=== PATIENT | female | born 1940 | race African-American/Black ===

== ENCOUNTER 2016-10-06 00:24 | Inpatient (IN) ==
--- NOTE | 2016-10-06 02:22 | PROVIDER DOCUMENTATION ---
This chart was entered by Terell Larios Scribe, acting as scribe for Aaron Mantilla PA. HPI-Abdominal Pain/GI Problem - General Source: patient, EMS - History of Present Illness-ABD Nature of Presenting Problems: Pt is a 76 yoaaf wgo presents to ER via EMS from [facility] where she has been a resident for x5 years for evaluation of dark colored contents coming from pt's feeding tube. Nursing staff reports that they have never seen this before and became worried. Abdominal Pain Onset Location: reports: LUQ, LLQ Pain Radiation: reports: no radiation Quality of Pain: reports: aching Severity in ED: reports: mild Onset/Duration: reports: unsure, 24 hours ago Timing: reports: still present Associated Symptoms: denies: anxiety, arm pain, back/neck pain, chest pain, cough, diaphoresis, diarrhea, fever/chills, heartburn, joint pain, muscle aches , nausea, shortness of breath, vomiting, weakness Last BM: unsure Dark Stools Present?: reports: none noticed Rectal Bleeding: reports: none Rectal Pain: reports: none Emesis Description: reports: none <Aaron Mantilla - Last Filed: 10/06/16 05:05> <Carlos Ojeda - Last Filed: 10/06/16 06:09> - General Chief Complaint: General Adult Stated Complaint: possible gi bleed Time Seen by Provider: 10/06/16 01:29 Allergies/Adverse Reactions: Patient Allergies Allergy/AdvReac Type Severity Reaction Status Date / Time No Known Allergies Allergy Verified 10/06/16 01:25 Home Medications: Home Medication List Medication Instructions Recorded Confirmed Last Taken Type ATORVAstatin [Lipitor] 20 mg PEG QAM 10/06/16 10/06/16 10/05/16 09:00 History Aspirin 81 mg PEG QAM 10/06/16 10/06/16 10/05/16 09:00 History Bisacodyl [Dulcolax] 10 mg OK QHS 10/06/16 10/06/16 10/05/16 21:00 History Hydrocodone/Acetaminophen [Kincaid 1 each PEG BID 10/06/16 10/06/16 10/05/16 21: 00 History 5-325 Tablet] Insulin Glargine [Lantus] 20 unit SUBQ QHS 10/06/16 10/06/16 10/05/16 21:00 History Levetiracetam [Keppra] 500 mg PEG BID 10/06/16 10/06/16 10/05/16 17:00 History Metoclopramide [Reglan Liquid] 10 mg PEG Q8H 10/06/16 10/06/16 10/05/16 20:00 History Multivit,Th Iron,Other Min 1 each PO QAM 10/06/16 10/06/16 10/05/16 09:00 History [Thera-M] Nut.tx.gluc.intoler,Lac-Fr,Soy 880 ml PEG BID 10/06/16 10/06/16 10/05/16 19:00 History [Glucerna 1.5 Chidi] Phenytoin 100 mg PEG QHS 10/06/16 10/06/16 10/05/16 21:00 History Phenytoin 150 mg PEG QAM 10/06/16 10/06/16 10/05/16 09:00 History Polyethylene Glycol 3350 [Miralax] 17 gm PEG QAM 10/06/16 10/06/16 10/05/16 09: 00 History Protein Hydrolysate,Milk [Liquid 30 ml PEG QAM 10/06/16 10/06/16 10/05/16 09:00 History Protein Fortifier] Review of Systems - Adult - REVIEW OF SYSTEMS - ADULT Constitutional: denies: chills, fever, fatique, night sweats, weight gain, weight loss Eyes: reports: no symptoms reported Ears, Nose, Mouth & Throat: reports: no symptoms reported Cardiovascular: reports: no symptoms reported Respiratory: reports: no symptoms reported Gastrointestinal: reports: other (feeding tube leaking, daark colored contents) . denies: abdominal pain, hematemesis, constipation, diarrhea, difficulty swallowing, frequent heartburn, nausea, poor appetite, rectal bleeding, vomiting Genitourinary: reports: no symptoms reported Musculoskeletal: reports: no symptoms reported Integumentary: reports: no symptoms reported Neurological: reports: no symptoms reported Psychiatric: reports: no symptoms reported Endocrine: reports: no symptoms reported Hematologic/Lymphatic: reports: no symptoms reported Allergic/Immunologic: reports: no symptoms reported All Other Systems: Reviewed and Negative <Aaron Mantilla - Last Filed: 10/06/16 05:05> - REVIEW OF SYSTEMS - ADULT Constitutional: reports: no symptoms reported <Carlos Ojeda - Last Filed: 10/06/16 06:09> Past History - Adult - PAST MEDICAL HISTORY-ADULT Review of Records: reports: Nursing Assessment Review, Medications Reviewed - IMMUNIZATION STATUS Childhood Immunizations: See Nurse Assessment Flu Vaccine: See Nurse Assessment <Aaron Mantilla - Last Filed: 10/06/16 05:05> - PAST MEDICAL HISTORY-ADULT Review of Records: reports: Medications Reviewed <Carlos Ojeda - Last Filed: 10/06/16 06:09> Physical Exam-General - PHYSICAL EXAM-ADULT Initial Vital Signs Reviewed: Yes - CONSTITUTIONAL General Appearance: appears well, alert, no apparent distress, other (Pt non verbal, but otherwise pleasant and in no acute distress) - RESPIRATORY Respiratory: chest non-tender, lungs clear, normal breath sounds, no pleuratic chest pain, no respiratory distress, no accessory muscle use. negative: respiratory distress, decreased breath sounds, accessory muscle use, wheezing - CARDIOVASCULAR Cardiovascular: normal peripheral pulses, regular rate, rhythm. negative: bradycardia, tachycardia, irregularly irregular - GASTROINTESTINAL (ABDOMEN) Abdominal Exam: normal bowel sounds, non tender, soft, no organomegaly, no pulsatile mass, other (G-tube in good position, no signs of infection or drainage) - PSYCHIATRIC Psych/Mental Status: normal mood/affect, normal thought content, normal thought process <Aaron Mantilla - Last Filed: 10/06/16 05:05> - PHYSICAL EXAM-ADULT Initial Vital Signs Reviewed: Yes - CONSTITUTIONAL General Appearance: no apparent distress <Carlos Ojeda - Last Filed: 10/06/16 06:09> Progress - PLAN OF CARE/RESULTS Progress/Plan/Lab Results: Vital Signs - 8 hr 10/06/16 00:50 Temperature 97.8 F Pulse Rate 82 Respiratory Rate 14 Blood Pressure 153/98 O2 Sat by Pulse Oximetry 95 Orders Category Date Time Status Saline Loc DIRECTED Care 10/06/16 01:38 Active NPO Diet 10/06/16 01:38 Active AMYLASE [CHEM] Stat Lab 10/06/16 01:38 Uncollected CBC WITH ELECTRONIC DIFF [HEME] Stat Lab 10/06/16 01:38 Uncollected COMPREHENSIVE METABOLIC PANEL [CHEM] Stat Lab 10/06/16 01:38 Uncollected LIPASE [CHEM] Stat Lab 10/06/16 01:38 Uncollected OCCULT BLOOD NON-FECES Stat Lab 10/06/16 01:39 Uncollected URINALYSIS W/POSS RFLX CULT-1 [URINALYSIS] Stat Lab 10/06/16 01:38 Uncollected Result Diagrams: 10/06/16 02:40 10/06/16 02:40 - CT/MRI 1 CT Study: Abdomen, Pelvis Impression: Abnormal (PEG tube extends to the gastric lumen. No intra-abdominal hematoma. Mild intermediate intensity) - CHANGE OF SHIFT REPORT (ED Provider) Report Given and Care Transferred to:: Dr. Ojeda (ER ) Time of Transfer: 04:25 (Waiting CT results) <Aaron Mantilla - Last Filed: 10/06/16 05:05> - PLAN OF CARE/RESULTS Progress/Plan/Lab Results: Vital Signs - 8 hr 10/06/16 00:50 10/06/16 03:05 10/06/16 05:23 Temperature 97.8 F Pulse Rate 82 86 90 Respiratory Rate 14 14 16 Blood Pressure 153/98 128/105 117/77 O2 Sat by Pulse Oximetry 95 94 L 95 10/06/16 06:06 Temperature 97.9 F Pulse Rate 92 H Respiratory Rate 16 Blood Pressure 110/74 O2 Sat by Pulse Oximetry 95 10/06/16 02:03 Gastric Occult Blood - Final Gastric Fluid Laboratory Results - last 24 hr 10/06/16 10/06/16 10/06/16 02:24 02:40 02:40 WBC 6.01 RBC 3.86 L Hgb 12.3 Hct 37.7 MCV 97.7 MCH 31.9 H MCHC 32.6 L RDW Std Deviation 12.7 Plt Count 174 MPV 12.4 H Immature Gran % (Auto) 0.0 Neut % (Auto) 56.2 Lymph % (Auto) 29.5 [place] % (Auto) 11.6 H Eos % (Auto) 2.5 Baso % (Auto) 0.2 Immature Gran # (Auto) 0.00 Neut # (Auto) 3.38 Lymph # (Auto) 1.77 [place] # (Auto) 0.70 H Eos # (Auto) 0.15 Baso # (Auto) 0.01 PT INR PTT (Actin FS) Sodium 137 Potassium 4.8 Chloride 95 L Carbon Dioxide 29 Anion Gap 13 BUN 19 Creatinine 0.5 Estimated GFR/1.73 m2 > 60 BUN/Creatinine Ratio 38 Glucose 132 H Calculated Osmolality 278 Calcium 9.3 Total Bilirubin 0.19 L AST 32 H ALT 22 Alkaline Phosphatase 160 H Total Protein 7.6 Albumin 3.7 Globulin 3.9 Albumin/Globulin Ratio 0.9 Amylase 50 Lipase 13 Urine Source CATH Urine Color YELLOW Urine Turbidity HAZY Urine pH 6.5 Ur Specific [place] 1.006 Urine Protein NEGATIVE Ur Glucose (Stick) NEGATIVE Ur Ketones (Stick) NEGATIVE Urine Blood SMALL A Urine Nitrite POSITIVE A Urine Bilirubin NEGATIVE Urobilinogen Dipstick NORMAL Urine Leukocytes MODERATE A Urine WBC (Auto) 10-20 A Urine RBC (Auto) <10 U Epithel Cells (Auto) <10 Urine Bacteria (Auto) 4+ Blood Type Antibody Screen 10/06/16 10/06/16 02:40 02:40 WBC RBC Hgb Hct MCV MCH MCHC RDW Std Deviation Plt Count MPV Immature Gran % (Auto) Neut % (Auto) Lymph % (Auto) [place] % (Auto) Eos % (Auto) Baso % (Auto) Immature Gran # (Auto) Neut # (Auto) Lymph # (Auto) [place] # (Auto) Eos # (Auto) Baso # (Auto) PT 10.5 INR 1.00 PTT (Actin FS) 27.3 Sodium Potassium Chloride Carbon Dioxide Anion Gap BUN Creatinine Estimated GFR/1.73 m2 BUN/Creatinine Ratio Glucose Calculated Osmolality Calcium Total Bilirubin AST ALT Alkaline Phosphatase Total Protein Albumin Globulin Albumin/Globulin Ratio Amylase Lipase Urine Source Urine Color Urine Turbidity Urine pH Ur Specific [place] Urine Protein Ur Glucose (Stick) Ur Ketones (Stick) Urine Blood Urine Nitrite Urine Bilirubin Urobilinogen Dipstick Urine Leukocytes Urine WBC (Auto) Urine RBC (Auto) U Epithel Cells (Auto) Urine Bacteria (Auto) Blood Type O POSITIVE Antibody Screen NEGATIVE Orders Category Date Time Status Saline Loc DIRECTED Care 10/06/16 01:38 Active NPO Diet 10/06/16 01:[address] ABD/PELVIS W/ IV CONT ONLY [CT] Stat Exams 10/06/16 02:18 Taken AMYLASE [CHEM] Stat Lab 10/06/16 02:40 Completed CBC WITH ELECTRONIC DIFF [HEME] Stat Lab 10/06/16 02:40 Completed COMPREHENSIVE METABOLIC PANEL [CHEM] Stat Lab 10/06/16 02:40 Completed LIPASE [CHEM] Stat Lab 10/06/16 02:40 Completed OCCULT BLOOD NON-FECES Stat Lab 10/06/16 02:03 Completed PROTIME WITH INR [COAG] Stat Lab 10/06/16 02:40 Completed PTT [COAG] Stat Lab 10/06/16 02:40 Completed TYPE & SCREEN [BBK] Stat Lab 10/06/16 02:40 Completed URINALYSIS W/POSS RFLX CULT-1 [URINALYSIS] Stat Lab 10/06/16 02:24 Completed URINE CULTURE [RM] Routine Lab 10/06/16 02:55 Received CefTRIAXONE 1 GM/NS [Rocephin 1 gm/Ns] Med 10/06/16 04:22 Discontinued 1 gm in 50 ml IV NOW Pantoprazole [Protonix] Med 10/06/16 05:05 Discontinued 40 mg IV NOW ONE Sodium Chloride 0.9% Med 10/06/16 05:05 Discontinued 10 ml INJ NOW ONE Transfer/Admit Order [TRANSFER] Routine Transfer 10/06/16 05:48 Ordered Result Diagrams: 10/06/16 02:40 10/06/16 02:40 - CONSULTS/PCP/HOSPITALIST Notification #1 *Consult/PCP/Hospitalist*: [place] Time Discussed: 05:30 Consult Disposition: Will see in ED, Admit <Carlos Ojeda - Last Filed: 10/06/16 06:09> Departure - Departure Date of Disposition Decision: 10/06/16 Time of Disposition Decision: 05:05 Certified Medical Emergency: Emergent <Aaron Mantilla - Last Filed: 10/06/16 05:05> - Departure Date of Disposition Decision: 10/06/16 Time of Disposition Decision: 05:06 Certified Medical Emergency: Emergent - Critical Care Note This patient required my direct & personal management of CC.: No <Carlos Ojeda - Last Filed: 10/06/16 06:09> - Departure DIAGNOSIS: Bleeding from gastrostomy tube site Disposition: ADMITTED INPATIENT 09 Condition: Stable Referrals and Follow-Ups: None,PCP [Primary Care Provider] - Attestation - Physician/ CAROL Attestation Patient care was provided by Advanced Practice Provider:: Yes Advanced Practice Provider:: Aaron Mantilla Advanced Practice Provider documentation review:: The Mid-level provider documentation, treatment plan and medical decision making was reviewed by the physician who agrees with all treatment and medical decision making by the MLP. <Aaron Mantilla - Last Filed: 10/06/16 05:05> This chart was documented by the indicated scribe, (Terell Larios, Marisa) and accurately reflects the services I performed and decisions made by me, Aaron Mantilla, PA, as attested by the provider's signature.
[2016-10-06 02:38] LABS: URINE MICRO REVIEW NEEDED? NO; URINE SOURCE CATH
[2016-10-06 02:44] LABS: BILIRUBIN URINE NEGATIVE (NEGATIVE); BLOOD URINE SMALL (NEGATIVE); COLOR YELLOW; GLUCOSE URINE NEGATIVE (NEGATIVE); LEUKOCYTES URINE MODERATE (NEGATIVE); NITRITE URINE POSITIVE (NEGATIVE); PH URINE 6.5; PROTEIN URINE NEGATIVE (NEGATIVE); SP GRAVITY URINE 1.006; TURBIDITY URINE HAZY (CLEAR); UROBILINOGEN URINE NORMAL (NORMAL)
[2016-10-06 02:45] LABS: UR EPITHELIAL CELLS <10 /HPF (<10); URINE BACTERIA 4+ /HPF; URINE CULTURE NEEDED? YES; URINE RBC <10 /HPF (<10)
[2016-10-06 03:07] LABS: MANUAL DIFF NEEDED? NO
[2016-10-06 03:10] LABS: BASO% 0.2 % (0.0-0.8); EOS# 0.15 X1000 (0.0-0.7); EOS% 2.5 % (0.0-10.0); HEMATOCRIT 37.7 % (37.0-47.0); HEMOGLOBIN 12.3 g/dL (12.0-16.0); LYMPH# 1.77 X1000 (1.2-3.4); LYMPH% 29.5 % (20.5-51.1); MCH 31.9 PG (27-31); MCHC 32.6 g/dL (33-37); MCV 97.7 FL (81-99); MONO% 11.6 % (1.7-9.3); MPV 12.4 FL (7.4-10.4); NEUT% 56.2 % (42.2-75.2); PLT 174 X1000 (130-400); RBC 3.86 XMIL (4.2-5.4)
[2016-10-06 03:20] LABS: PROTIME 10.5 Seconds (9.2-11.7); PTT 27.3 Seconds (22.0-36.0)
[2016-10-06 03:35] LABS: AGAP 13; ALBUMIN 3.7 g/dL (3.5-5.0); ALKALINE PHOSPHATASE 160 U/L (32-104); AMYLASE 50 U/L (20-200); BUN 19 mg/dL (8-22); CALCIUM 9.3 mg/dL (8.8-10.2); CHLORIDE 95 mmol/L (98-107); COSMO 278; GOT 32 U/L (10-30); GPT 22 U/L (10-36); LIPASE 13 U/L (13-60); POTASSIUM 4.8 mmol/L (3.5-5.1); SODIUM 137 mmol/L (136-145); TCO2 29 mmol/L (25-35); TOTAL BILIRUBIN 0.19 mg/dL (0.20-1.00); TOTAL PROTEIN 7.6 g/dL (6.3-8.3)
[2016-10-06] MEDS ORDERED: ROCEPHIN 1 GM/NS 1 GM/50 ML IVPB IV ONE (04:22)
[2016-10-06] MEDS ORDERED: PROTONIX IV ONE (05:05)
[2016-10-06] MEDS: SODIUM CHLORIDE 0.9% INJ ONE ×2 (05:13→23:56)
[2016-10-06] MEDS ORDERED: ZOFRAN IV PRN (06:47)
[2016-10-06] MEDS ORDERED: TYLENOL PO PRN (06:47)
[2016-10-06] MEDS ORDERED: SODIUM CHLORIDE 0.9% INJ ONE (06:47)
--- NOTE | 2016-10-06 06:50 | HISTORY AND PHYSICAL ---
PRIMARY CARE PHYSICIAN: No primary care physician. REASON FOR ADMISSION: Coffee ground expressed from PEG tube. HISTORY OF PRESENT ILLNESS: Ms. 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 She is a 3 to 4-year resident of [facility]. Yesterday evening, they were trying to flush out her PEG tube and noticed large amounts of dark coffee-ground material. No blood emanating from her PEG tube. She was sent to the ER to be evaluated. The patient is barely verbal, though I could not obtain any direct information as to whether she was in any distress or pain, or if she had been passing any blood or melena in the past. Her son at bedside and 1 of her other relatives, to the best of their knowledge in the last 24 hours, have not noticed any such issues nor any fever or chills or altered mental behavior. On arrival to the ER, they attempted to flush her PEG and they suctioned out a lot of dark material, presumably coffee grounds from her PEG site. A CAT scan was done, and it showed mild intermediate intensity thickening surrounding the PEG tube catheter within the subcutaneous soft tissues, which may be a small volume of blood versus granulation tissue surrounding the tube. No obvious evidence of active bleeding though. On account of this, I am admitting the patient to be evaluated by Dr. Hamm, her lead nurse. REVIEW OF SYSTEMS: For obvious reasons, could not be really ascertained. The family has not seen any cardiorespiratory distress over the last 24 hours. MEDICATION: List comprises of the following: Aspirin 81 mg daily, Lipitor 20 mg daily, Dulcolax 10 mg daily, hydrocodone 1 b.i.d., Lantus 20 mg at bedtime, Keppra 500 mg b.i.d., Reglan 10 mg q.8 hours, multivitamin tablets once a day, Glucerna 888 mL b.i.d. via PEG, phenytoin 100 mg in the evening and 150 in the morning, MiraLAX 17 g q.a.m., protein hydrolysate milk 30 mL q.a.m. FAMILY HISTORY: Unchanged per the son. Family history of strokes, hypertension, heart disease and diabetes. PAST SURGICAL HISTORY: She has had cataract surgery. PAST MEDICAL HISTORY: She has a history of a prior CVA, type 2 diabetes, hypertension and since I last saw her in 2013, she has had 2 other additional strokes. SOCIAL HISTORY: Never smoked or drank, and is a permanent resident of [facility]. LABORATORY WORK: White count 6000, hemoglobin 12 and hematocrit 37, platelets 174,000. Glucose 132, BUN 19, creatinine 0.5, AST 32, ALT 22, alkaline phosphatase 140. PT/PTT is normal. Urinalysis positive nitrates, 4+ bacteria, 10-20 white cells, moderate leukocytes. Positive Gastroccult. PHYSICAL EXAMINATION: VITAL SIGNS: Blood pressure 117-77, heart rate 90, temperature is 97.8 degrees, respirations 16, 95% on room air. GENERAL: She is a pleasant elderly woman who is nonverbal. She will follow basic commands. She does open her eyes at the family's request. She appears to have a normal mood and affect. I could not assess her orientation. For some reason, she is very tired and sleepy and unable to answer questions. HEENT: Head is normocephalic, atraumatic. Eyes, QUINTON, EOMI. She is anicteric and not pale. ENT and oropharynx are grossly normal. NECK: Supple. No JVD. CHEST: Clear to auscultation. Good air entry to both lung mark. CARDIOVASCULAR: First and second heart sounds heard. No gallops, murmurs or rubs. Rhythm is regular. ABDOMEN: Shows a PEG tube near the epigastric area of her abdomen. The surrounding skin is intact with no erythema or exudate emanating from the stoma. Surprisingly, no diffuse tenderness. No CVA tenderness. No mass or organomegaly. Bowel sounds are severely hypoactive. RECTAL: Exam is deferred. EXTREMITIES: Trace edema in the lower extremities. Pulses distally in all extremities are intact and symmetrical with volume. No clubbing or peripheral cyanosis. NEUROLOGICAL SYSTEM: Difficult to ascertain. Patient is not very cooperative and she appeared to be very tired. According to the family, they say she has not slept all night. She is able to move her hands but I noticed she is unable to move her lower extremities, and the family says that she is pretty much bed bound. SKIN: Intact with no breakdown lesions or erythema. MUSCULOSKELETAL: Exam is grossly normal. ASSESSMENT: 1. Probable early upper gastrointestinal bleed. Gastritis more likely than peptic ulcer disease. We will put in a consult for Dr. Hamm to see patient. IV proton pump inhibitor started. Check hemoglobin and hematocrit in 6 hours to see where the patient is trending. Start IV fluids. 2. Urinary tract infection. Switch from Rocephin to Maxipime since patient lives in a group home to extend coverage to cover Pseudomonas pending cultures. If it is a straight forward cystitis, which I think it is, we should not exceed treatment for more than 3 days. Follow cultures. 3. Type 2 diabetes. Continue with Lantus and start on sliding scale. 4. Hypertension. Continue antihypertensives. 5. Seizure disorder. Continue with antiepileptic medications. cc: Jeremy Oconnor MD
[2016-10-06] MEDS ORDERED: TYLENOL LIQUID PO PRN (07:00)
--- NOTE | 2016-10-06 08:49 | Diag Imaging Result Doc PS360 ---
CT ABD/PELVIS W/ IV CONT ONLY - 10/06/2016 INDICATION: GI bleed from g-tube TECHNIQUE: A CT dose reduction protocol was used. COMPARISON: None FINDINGS: There is some linear atelectasis in the lung bases but no infiltrates. Heart size is normal. There is a G-tube in good position. No abnormal hemorrhage or fluid collections. No bowel obstruction or inflammation. Normal appendix. The liver, gallbladder, spleen, pancreas, adrenals, and kidneys are normal. Urinary bladder, uterus, and rectum are normal. There are moderate degenerative changes of the spine. No acute or suspicious bony lesion. IMPRESSION: No acute disease or complication. Electronically signed by Josiah Foster 10/06/2016 8:47 AM
[2016-10-06] MEDS ORDERED: NON-FORMULARY MED (Protein Hydrolysate,Milk [Liquid Protein Fortifier] 30 ML) PEG SCH (09:00)
[2016-10-06] MEDS ORDERED: PROTONIX IV SCH (09:00)
[2016-10-06] MEDS ORDERED: [UNRECOGNIZED DRUG - OTHER] PEG SCH (09:00)
[2016-10-06] MEDS ORDERED: NUT TX GLUC INTOLER LAC FR SOY PEG SCH (09:00)
[2016-10-06] MEDS: NS 1,000 ML IV SCH ×2 (09:42→16:04)
[2016-10-06] MEDS: NORCO-5 PEG SCH ×2 (09:45→23:56)
[2016-10-06] MEDS: LIPITOR PEG SCH (09:46)
[2016-10-06] MEDS: DILANTIN PEG SCH ×2 (09:46→23:55)
[2016-10-06] MEDS: MIRALAX PEG SCH (09:46)
[2016-10-06] MEDS: KEPPRA LIQUID PEG SCH ×2 (09:46→23:55)
[2016-10-06] MEDS: THERA M PLUS PO SCH (09:46)
[2016-10-06 12:00] LABS: HEMATOCRIT 33.2 % (37.0-47.0); HEMOGLOBIN 10.9 g/dL (12.0-16.0)
[2016-10-06] MEDS ORDERED: SODIUM CHLORIDE 0.9% 10 ML ONE (16:25)
[2016-10-06] MEDS ORDERED: INSULIN PEN NEEDLES ONE (16:27)
[2016-10-06] MEDS: MAXIPIME 1 GM/NS 1 GM/50 ML IVPB IV SCH (17:17)
--- NOTE | 2016-10-06 17:56 | CONSULTATION ---
DATE OF CONSULTATION: 10/06/2016 REFERRING PHYSICIAN: Jeremy Oconnor MD. CHIEF COMPLAINT: Coffee-grounds per the PEG tube. HISTORY OF PRESENT ILLNESS: Ms. 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 She has been a resident of [facility]. She had a stroke 5 years ago about 2013 or 2014. She had motor aphasia and dysphagia, and required PEG tube placement by Dr. Rosa. She was admitted today with coffee grounds through the PEG tube. The patient has been on aspirin in the snf and she has not been on any kind of PPIs in the snf. This could have caused her an ulcer in the setting of her chronic PEG tube. The patient since being in the hospital had a low but stable hematocrit. No complaints of vomiting, blood or passing blood in the stools. PAST MEDICAL HISTORY: CVA, hyperlipidemia, constipation, chronic pain and seizures. PAST SURGICAL HISTORY: Cataract surgery, PEG tube placement. SOCIAL HISTORY: She is a resident of [facility]. No history of alcohol, tobacco or illicit drugs. MEDICATIONS: Noted in the chart and EMR. FAMILY HISTORY: Significant for diabetes, heart disease, hypertension, strokes. REVIEW OF SYSTEMS: Could not be obtained as the patient is aphasic. PHYSICAL EXAMINATION: Most of the history was taken from the records in the chart and the family at bedside.Vital Signs: Temperature 97.7, pulse of 88, respiratory rate of 16, blood pressure 134/92, saturating 98% on room air. Body weight of 170 pounds 14 ounces. BMI of 26 kg. General Appearance: Moderately nourished, lying in bed, in no acute distress. HEENT: Pale conjunctivae. No icterus. Pupils equal and reactive to light. Neck: Supple. Chest: Decreased. Cardiac: Regular rhythm. Tachycardic. Abdomen: Soft, nontender. Bowel sounds are present. No guarding. PEG tube in place. No drainage or erythema around the PEG tube site and no blood around the PEG tube site noted. Extremities: No cyanosis or clubbing. Neurologic: She is awake and alert but has motor aphasia and could not answer any questions. LABS: Hemoglobin and hematocrit is 10.9 and 33.2, white count of 6.01, platelet count of 174,000. MCV of 97.7 on admission. Hemoglobin and hematocrit was 37%. INR 1, PT 10.5, PTT 27.3. Sodium 137, potassium 4.8, chloride 95, bicarbonate 29, anion gap of 13, BUN of 19, creatinine 0.5, glucose of 132, calcium 9.3, total bilirubin is 0.19, AST 32, ALT 22, alkaline phosphatase 160, total protein 7.6, albumin of 3.7, amylase of 50, lipase of 13. Urinalysis is positive for UTI and her urine culture is currently pending. Gastroccult was positive. IMPRESSION AND PLAN: 1. Coffee-ground emesis per the PEG tube. 2. Anemia. 3. History of cerebrovascular accident, on aspirin. 4. Urinary tract infection. 5. Type 2 diabetes. 6. Hypertension. 7. Seizure disorder. RECOMMENDATIONS: 1. We will keep the patient on PPIs twice daily. We will keep her on IV fluids. We will hold the PEG tube feeds for now. We will schedule her for serial hemoglobin and hematocrit and type and cross, and transfuse to keep hematocrit more than 27%. We will follow the urine culture results. We will schedule patient for EGD on Saturday or sooner depending on overall status. If the patient stays stable hemodynamically, we will perform EGD on Saturday. At that time we will also replace the PEG tube as that has not been done in the last 2 years. 2. Risks, benefits, indications, alternatives were discussed with the patient's family who was present. cc: MD Norman Braden MD
[2016-10-06] MEDS: DULCOLAX PR SCH (23:56)
[2016-10-06] MEDS: PROTONIX IV SCH (23:56)
[2016-10-07] MEDS: LANTUS SUBQ SCH ×2 (05:16→22:54)
[2016-10-07] MEDS: MAXIPIME 1 GM/NS 1 GM/50 ML IVPB IV SCH ×2 (05:17→18:03)
[2016-10-07 06:34] LABS: MANUAL DIFF NEEDED? NO
[2016-10-07 06:46] LABS: BASO% 0.2 % (0.0-0.8); EOS# 0.15 X1000 (0.0-0.7); HEMATOCRIT 33.8 % (37.0-47.0); LYMPH# 1.73 X1000 (1.2-3.4); LYMPH% 34.6 % (20.5-51.1); MCH 32.6 PG (27-31); MCHC 32.5 g/dL (33-37); MCV 100.3 FL (81-99); MONO# 0.64 X1000 (0.11-0.59); MONO% 12.8 % (1.7-9.3); MPV 12.1 FL (7.4-10.4); NEUT% 49.4 % (42.2-75.2); PLT 177 X1000 (130-400); RBC 3.37 XMIL (4.2-5.4)
[2016-10-07 07:05] LABS: AGAP 7; BUN 12 mg/dL (8-22); CALCIUM 8.8 mg/dL (8.8-10.2); CHLORIDE 105 mmol/L (98-107); COSMO 286; POTASSIUM 4.1 mmol/L (3.5-5.1); SODIUM 142 mmol/L (136-145); TCO2 30 mmol/L (25-35)
[2016-10-07] MEDS ORDERED: SODIUM CHLORIDE 0.9% 10 ML ONE ×2 (07:33→17:02)
[2016-10-07] MEDS: KEPPRA LIQUID PEG SCH ×2 (09:53→22:52)
[2016-10-07] MEDS: DILANTIN PEG SCH ×2 (09:54→22:53)
[2016-10-07] MEDS: MIRALAX PEG SCH (09:54)
[2016-10-07] MEDS: PROTONIX IV SCH ×2 (09:54→22:54)
[2016-10-07] MEDS: LIPITOR PEG SCH (09:54)
[2016-10-07] MEDS: THERA M PLUS PO SCH (09:55)
[2016-10-07] MEDS: NORCO-5 PEG SCH ×2 (09:55→22:53)
[2016-10-07] MEDS: NS 1,000 ML IV SCH (14:57)
--- NOTE | 2016-10-07 18:32 | PROGRESS NOTE ---
DATE: 10/07/2016 SUBJECTIVE: The patient has no focal complaints. She is sleeping and tolerating tube feeds. OBJECTIVE: Vital Signs: Blood pressure 124/75, heart rate of 71, respiratory rate 18, temperature 97.4 degrees, 98% on room air. Cardiovascular: Regular rate and rhythm. Pulmonary: Bilateral breath sounds. Clear to auscultation. GI: Soft, nontender, nondistended. Bowel sounds are positive. PEG site looks good. I do not think there has been anymore bleeding from what I understand. LABORATORY DATA: White count 5. Hemoglobin and hematocrit 11 and 33. Platelets of 177,000. Basic was normal. Urine culture is growing out urine gram-negative preet. PROBLEM LIST: 1. Urinary tract infection. She is empirically on antibiotics. She is on cefepime due to concern over resistance. 2. Gastrointestinal bleed. We will continue to monitor on PPI. Dr. Hamm is planning for esophagogastroduodenoscopy tomorrow and replacing her PEG tube. We will monitor her hemoglobin and hematocrit, which has been stable. 3. Diabetes. Appears to be stable on current regimen. 4. Seizure disorder. Appears to be stable. DISPOSITION: Pending her GI workup. We will continue to follow. cc: Jose Fritz MD
--- NOTE | 2016-10-07 22:10 | PROGRESS NOTE ---
DATE: 10/07/2016 SUBJECTIVE: Patient resting in bed. She is sleeping. Her son and her daughter was present at bedside, they denied any nausea, vomiting today, she did move her bowels today , no fevers reported. She has been started on tube feeds, she has been tolerating them well so far. OBJECTIVE: Vitals: Temperature 97.4 degrees, pulse 71, respiratory 18, blood pressure 124/75, saturating 98% room air. General Appearance: Moderately built lying in bed in no acute distress. HEENT: Pale conjunctivae. No icterus. Neck: Supple. Abdomen: Positive PEG in place. Mild abdominal distention. No rebound or guarding and the PEG tube site appears clean and dry with no drainage or erythema noted around the PEG tube site. Extremities: No cyanosis, clubbing. Neuro: She is sleeping at the moment so examination was not performed. LAB: Her hemoglobin and hematocrit is 11 and 33.8, white count 5, platelet count of 177,000, MCV of 100.3, sodium 142, potassium 4.1, chloride 105, bicarb 29, BUN of 12, creatinine 0.5, glucose of 151, calcium is 8.8 . Urinalysis positive for UTI, her urine culture showing gram-negative rods 100,000 colony-forming units per mL. She has been on antibiotics . IMPRESSION AND PLAN: 1. Coffee-grounds emesis. 2. Anemia. 3. Cerebrovascular accident status post percutaneous endoscopic gastrostomy tube placement 2014 for dysphagia. 4. Type 2 diabetes. 5. Urinary tract infection. 6. Hypertension. 7. Seizure disorder. RECOMMENDATIONS: 1. Will continue PPIs twice daily, will keep an eye on the hemoglobin and hematocrit, will check in the morning. Will schedule for EGD in the morning for evaluation of any peptic ulcer disease and placed on the PEG tube. The risks, benefits, indications all discussed with the patient's family at bedside and all questions answered. 2. Antibiotics for urinary tract urinary tract infection. 3. Further recommendations pending the hospital course. cc: Jose Fritz MD [facility]
[2016-10-07] MEDS: DULCOLAX PR SCH (22:54)
[2016-10-08] MEDS: NS 1,000 ML IV SCH ×2 (04:50→22:13)
[2016-10-08] MEDS: MAXIPIME 1 GM/NS 1 GM/50 ML IVPB IV SCH (04:59)
[2016-10-08 07:21] LABS: HEMOGLOBIN 10.3 g/dL (12.0-16.0); MCH 32.9 PG (27-31); MCHC 32.2 g/dL (33-37); MCV 102.2 FL (81-99); MPV 12.7 FL (7.4-10.4); RBC 3.13 XMIL (4.2-5.4)
[2016-10-08 07:48] LABS: AGAP 9; BUN 10 mg/dL (8-22); CALCIUM 8.3 mg/dL (8.8-10.2); CHLORIDE 106 mmol/L (98-107); COSMO 283; SODIUM 142 mmol/L (136-145); TCO2 27 mmol/L (25-35)
[2016-10-08] MEDS ORDERED: DIPRIVAN 1% ONE (09:44)
[2016-10-08] MEDS ORDERED: NEOSPORIN OINTMENT PACKET ONE (09:54)
[2016-10-08] MEDS ORDERED: XYLOCAINE-MPF 2% ONE (09:56)
[2016-10-08] MEDS: PROTONIX IV SCH ×2 (10:18→21:47)
[2016-10-08] MEDS: KEPPRA LIQUID PEG SCH ×2 (11:09→21:47)
[2016-10-08] MEDS: DILANTIN PEG SCH ×2 (11:09→21:47)
[2016-10-08] MEDS: LIPITOR PEG SCH (11:10)
[2016-10-08] MEDS: NORCO-5 PEG SCH ×2 (11:10→21:42)
[2016-10-08] MEDS: THERA M PLUS PO SCH (11:10)
[2016-10-08] MEDS: MIRALAX PEG SCH (11:11)
--- NOTE | 2016-10-08 12:10 | OPERATIVE NOTE ---
PROCEDURE DATE: 10/08/2016 REFERRING PHYSICIAN: Jose Fritz MD PROCEDURE PERFORMED: Esophagogastroduodenoscopy with PEG tube replacement. PROVIDER: Norman Hamm MD PREOPERATIVE DIAGNOSES: 1. Melena. 2. Anemia. 3. History of cerebrovascular accident, causing motor aphasia and dysphagia. Has had a percutaneous endoscopic gastrostomy tube for a couple years. 4. Coffee-ground emesis per percutaneous endoscopic gastrostomy tube. 5. History of constipation. POSTOPERATIVE DIAGNOSES: 1. Normal esophagus. 2. Z-line at 36 cm. 3. Evidence of erosive gastritis in body and antrum. 4. Evidence of balloon percutaneous endoscopic gastrostomy tube noted. 5. Erosive duodenitis in the duodenal bulb. 6. Normal 2nd portion of duodenum. 7. Normal fundus, cardia, and incisura. 8. Percutaneous endoscopic gastrostomy tube replaced with a 24-Setswana balloon percutaneous endoscopic gastrostomy tube successfully. External bumper was noted at 5 cm. ESTIMATED BLOOD LOSS: Minimal. COMPLICATIONS: None. ANESTHESIA: Monitored anesthesia care. SPECIMENS REMOVED: None. DESCRIPTION OF PROCEDURE: After obtaining informed consent from the patient's family, explaining the risks, benefits, indications, and alternatives, the patient was prepared for EGD and PEG tube placement. The patient was brought to the OR. She was kept supine. She was given monitored anesthesia care. A bite block was placed in the patient's mouth. After adequate monitored anesthesia care, the upper scope was gently introduced through the oral vestibule all the way to the 2nd portion of the duodenum. The esophagus was normal in its entire length. The Z-line was visualized at 36 cm. There was evidence of some nonobstructing Schatzki rings. There was evidence of a balloon PEG noted, which was discolored in the body of the stomach. There was evidence of erosive gastritis in the body and antrum. There was a normal fundus , cardia, and incisura. On retroflexion, erosive duodenitis was noted in the duodenal bulb. A normal 2nd portion of the duodenum was noted. The scope withdrawn to the stomach and the old PEG was removed. The new PEG was inserted and filled with 20 mL of normal sterile saline. The external bumper was marked at 5 cm. The external PEG tube site showed evidence of some pus when we removed the old PEG tube. This was cleaned and Betadine was applied. Air was aspirated as the scope was withdrawn. The patient tolerated the procedure and is currently being monitored in the OR in stable condition. I discussed the findings with the patient's son by phone. All questions were answered. RECOMMENDATIONS: 1. The patient will continue on aspiration precaution. 2. The patient was started on PEG tube feeds today. 3. We will keep her on Prilosec 40 mg daily for the next 3 months and then wean down to Zantac 150 mg p.o. b.i.d. 4. We will keep her on MiraLAX 17 g p.o. once daily. We will start on Iron-C b.i.d. for 3 months. 5. Further recommendations to follow pending hospital course. cc: MD Jose Guzman MD MTDD
[2016-10-08] MEDS: ROCEPHIN 1 GM/NS 1 GM/50 ML IVPB IV SCH (12:20)
--- NOTE | 2016-10-08 15:27 | PROGRESS NOTE ---
DATE: 10/08/2016 SUBJECTIVE: Patient has no focal complaints. Somewhat sedated post her endoscopy. OBJECTIVE: Vital signs: Blood pressure 117/45, heart rate of 82, respiratory 18, temperature 97.5. General: Well-developed female in no acute distress. Head: Normocephalic, atraumatic. Eyes: Pupils equal, round, reactive to light. Cardiovascular: Regular rate and rhythm. Pulmonary: Bilateral breath sounds. Diminished at bases. GI: Was soft, nontender, nondistended. Bowel sounds are positive. PEG tube looks in place. There is a little bit of blood right around the ostomy site right where the PEG was placed. LABORATORY: White count, CBC was normal, hemoglobin and hematocrit 10 and 32. BNP was normal. Micro showed Providencia stuartii PROBLEM LIST: 1. Providencia UTI. We will continue Rocephin and discharged on Omnicef for another 7 days. 2. Upper gastrointestinal bleed secondary to gastritis, duodenitis, we will continue PPI for [address] Hamm's recommendations, I would leave it indefinitely but he recommended decreasing to Zantac in about a month. I am going to go ahead and recommend holding her aspirin for at least 1 week and then resuming if there is no bleeding issues. DISCHARGE CONDITION: Is stable. Plan for discharge tomorrow. cc: Jose Fritz MD
[2016-10-08] MEDS: LANTUS SUBQ SCH (21:42)
[2016-10-08] MEDS: DULCOLAX PR SCH (21:43)
[2016-10-09 07:19] LABS: HEMOGLOBIN 9.6 g/dL (12.0-16.0); MCV 103.1 FL (81-99); MPV 12.4 FL (7.4-10.4); RBC 2.91 XMIL (4.2-5.4)
[2016-10-09] MEDS: MIRALAX PEG SCH (09:05)
[2016-10-09] MEDS: THERA M PLUS PO SCH (09:05)
[2016-10-09] MEDS: KEPPRA LIQUID PEG SCH (09:05)
[2016-10-09] MEDS: NORCO-5 PEG SCH (09:06)
[2016-10-09] MEDS: LIPITOR PEG SCH (09:06)
[2016-10-09] MEDS: SODIUM CHLORIDE 0.9% 10 ML ONE ×2 (09:06→11:47)
[2016-10-09] MEDS: DILANTIN PEG SCH (09:07)
[2016-10-09] MEDS: PROTONIX IV SCH (09:07)
[2016-10-09] MEDS: NS 1,000 ML IV SCH (11:46)
[2016-10-09] MEDS: ROCEPHIN 1 GM/NS 1 GM/50 ML IVPB IV SCH (13:38)
[2016-10-09 14:35] VITALS: BP 113/77
[2016-10-09] MEDS ORDERED: SODIUM CHLORIDE 0.9% 10 ML ONE (14:44)
--- NOTE | 2016-10-09 15:12 | DISCHARGE SUMMARY ---
ADMISSION DATE: 10/06/2016 DISCHARGE DATE: 10/09/2016 ADMISSION DIAGNOSES: 1. Probable early upper gastrointestinal bleed from gastritis more likely than peptic ulcer disease. 2. Urinary tract infection. Switched to Maxipime from Rocephin. 3. Diabetes mellitus, type 2. 4. Hypertension. 5. Seizure disorder. DISCHARGE DIAGNOSES: 1. Upper gastrointestinal bleed secondary to gastritis and duodenitis. 2. Providencia urinary tract infection. Will change from meropenem to Omnicef for another 7 days. CONSULTATIONS: Dr. Norman Hamm for EGD. SURGERIES/PROCEDURES: On 10/06/2016, esophagogastroduodenoscopy performed by Dr. Hamm. Impression and plan included coffee-grounds emesis per the PEG tube and anemia, with recommendations Postoperative diagnoses include abnormal findings of erosive gastritis, gastrostomy tube, erosive duodenitis, and the percutaneous endoscopic gastrostomy tube was replaced with a 24-Frisian balloon percutaneous endoscopic gastrostomy tube with no complications. External bumper was noted at 5 cm. HOSPITAL COURSE: Ms. Ivy Loredo is a 76-year-old female who comes from [facility] as a long-term care resident with a history of aphasia secondary to prior stroke, diabetes mellitus type 2, and hypertension. Apparently, the day prior to admission, the nursing staff had noticed that she had had large amounts of coffee-grounds material that came from the PEG tube. There was no yosi blood noted. They sent her to the ER for evaluation. In the ER, they attempted to flush her PEG and suctioned out a large amount of dark material that was coffee- grounds in color. CAT scan performed showed mild intermediate intensity thickening surrounding the PEG tube with the subcutaneous soft tissues, which could be blood versus granulation tissue surrounding the tube. There was no evidence of active bleeding. Dr. Hamm was consulted and he performed an EGD on 10/08/2016 with the above findings. He also replaced her PEG tube and gave recommendations for post EGD care for erosive gastritis and duodenitis. She did not require any blood transfusions during her stay. Her vital signs remained stable. Her hemoglobin and hematocrit remained 9 to 10 with hematocrit of 30 to 33. She was stable. Her PEG tube feedings were held, but resumed yesterday, and will be transferred back to [facility]. DISCHARGE VITAL SIGNS: Temperature 97.5 degrees, heart rate 69, respiratory rate 17, blood pressure 139/65, O2 saturation 98% on room air. DISCHARGE MEDICATIONS: Aspirin 81 mg per PEG daily. Lipitor 20 mg per PEG daily. Dulcolax 10 mg per rectum nightly. Omnicef 300 mg per PEG twice daily. [place] 5 mg 1 per PEG twice daily. Lantus 20 units subcutaneous nightly. Icar C 1 tablet per PEG daily. Keppra 500 mg per PEG twice daily. Reglan 10 mg per PEG every 8 hours. Multivitamin once daily. Glucerna 880 mL per PEG twice daily. Prilosec 40 mg daily. Dilantin 150 per PEG daily and 100 nightly. MiraLAX 17 g per PEG daily. Liquid protein 30 mm per PEG daily. ACTIVITY: As tolerated. DIET: PEG feedings twice daily, 180 milliliters of Glucerna 1.5 calorie. DISPOSITION: [facility]. DISCHARGE INSTRUCTIONS: 1. If symptoms return, to seek medical advice. 2. The patient was admitted with a urinary tract infection from outside healthcare facility. Was on Rocephin there. We changed to meropenem here, and will send home on Omnicef 300 mg twice daily. RECOMMENDATIONS PER DR. HAMM: 1. The patient will continue on aspiration precautions. 2. The patient was started on PEG tube feedings and is to continue them as ordered. 3. Keep on Prilosec 40 mg daily for 3 months and then wean down to Zantac 150 mg twice daily. 4. Keep on MiraLAX 17 g daily and continue on Icar twice daily for 3 months. 5. Please follow up with Dr. Hamm as an outpatient. Dictated by ERIC Dukes for Baltazar Renteria MD cc: ERIC Dukes MD Seen and examined patient. Patient clinically stable. Will be discharge to [facility] with the above outlined plan MTDD
== END 2016-10-09 18:15 ==
LOC: ED 00:24 → 3N 06:26 → SUATTDRO 06:26 → 3N 11:38
PROVIDERS: ATTEND Internal Medicine